=== PATIENT | female | born 1965 | race Caucasian/White ===

== ENCOUNTER → 2017-08-04 | Outpatient (CLI) | payer BC ==
[~2017-08-04] VITALS: Ht 162.6 cm; Wt 67.6 kg
[~2017-08-04] MED LIST: BACLOFEN20 MG PO; BENTYL 20 MG TA20 M1 PO; BUTALB-APAP-CA1 EACH PO; CLONAZEPAM 1 MG1 M1 PO; FOLIC ACID1 MG PO; HUMIRA40 MG/0.8 SQ; KLONOPIN0.5 MG PO; METHOTREXATE 22.5 MG SUBQ; NYSTATIN15 G3 TOP; OXYCODONE HCL 55 MG PO; PAXIL CR25 MG PO; PAXIL10 MG PO; PERCOCET 10-321 EACH PO; PHENERGAN 25 MG25 M1 PO; ROXICODONE5 MG PO; SYNTHROID50 MCG PO; TRAMADOL 50 MG50 MG PO; WELLBUTRIN SR150 M1 PO; ZOFRAN ODT4 MG PO
--- NOTE | ~2017-08-04 | HPC ---
[facility] [place] [address] PAIN MANAGEMENT CONSULTATION Name: CAMDEN FINK Room #: REG [facility]#: [id number] Admission: 08/04/17 Attend Phys: Dylon Benites DO Discharge: Date of : 61 Report #: [id number] THIS REPORT FOR: //name// CC: Drew Benites DATE OF SERVICE: 08/04/2017 REFERRING PHYSICIAN: Drew Abrams MD CHIEF COMPLAINT: Left hip pain. HISTORY OF PRESENT ILLNESS: As you know, the patient is a 52-year-old female who was originally seen by [facility] for neck pain and head pain. This was last year for which she is now complaining of very little pain in the area. She has been experiencing increasing left hip pain. It has been going on for about 5 months, describes the pain is aching, places current pain score 7/10, states the pain is exacerbated with sitting, getting up from chair. Medications, heat and cold compresses and rest appear to improve pain. She has been referred back to our clinic for evaluation for left hip pain without inciting injury or trauma. ALLERGIES: No reported drug allergies. CURRENT MEDICATIONS: Tramadol, paroxetine, levothyroxine, Bentyl, promethazine, folic acid, bupropion. SOCIAL HISTORY: The patient continues to smoke. Denies IV or illicit drug use. Denies any chronic alcohol use. She is unaccompanied today. IMAGING: No new imaging available. PHYSICAL EXAMINATION: VITAL SIGNS: Blood pressure 134/76, pulse 90, respiratory rate 14, unlabored. The patient is 100% on room air, height 5 feet 4 inches tall, weight 149 pounds, BMI calculated 25.6. GENERAL: Well-developed, well-nourished, well-hydrated 52-year-old female, appears stated age. She is placing current pain score at approximately 7/10. HEENT: Normocephalic and atraumatic. Pupils equal, round, reactive to light. Extraocular muscles are intact. Sclerae are nonicteric without injection. NEUROLOGIC: Cranial nerves 2 through 12 grossly intact. Speech is fluent. LUNGS: Clear, no wheeze, rhonchi or rales. CARDIOVASCULAR: Regular. No appreciable gallop or rub. ABDOMEN: Soft, nontender, nondistended. EXTREMITIES: Show no clubbing, no cyanosis, no edema. [address] [address] PAIN MANAGEMENT CONSULTATION Name: CAMDEN FINK Room #: REG [facility]#: [id number] Admission: 08/04/17 Attend Phys: Dylon Benites DO Discharge: Date of : 61 Report #: [id number] MUSCULOSKELETAL: The patient has some palpatory tenderness over the left hip when compared to the right. Gait is mildly antalgic favoring the left lower extremity over right. Pain is elicited with standing from a seated position. Mariza's test positive left, negative right. Muscle bulk and tone equal and symmetrical in lower extremities, intact to light touch from L1 through S2 dermatomes. ASSESSMENT: 1. Left hip pain. 2. Left hip osteoarthritis. 3. Intractable pain. PLAN: 1. The patient returns today in followup visit now complaining of left hip pain. This has been going on for about 5 months. The patient indicates pain is nearly nonexistent while sitting and lying down, but it intensifies with walking and standing. This does appear that the patient is having some intrinsic hip pathology. She comes to us today without any imaging studies to further evaluate the left hip. The findings and physical exam would indicate mild arthritic changes, possible labral injury. We discussed with the patient's treatment options we have available for her symptoms. These would include physical therapy, stretching exercise, core strengthening. We discussed medication management with addition of a nonsteroidal anti-inflammatory. We discussed intraarticular hip injections and possible surgical options. After reviewing risks and benefits of all proposed treatment options, the patient chose to undergo left intraarticular hip injection and medication management. The patient was advised risks and benefits of a left intraarticular hip injection. These risks include but are not necessarily limited to bleeding, bruising, infection, worsening pain, no relief of pain, also risk of temporary or permanent muscle weakness, temporary or permanent nerve damage, possible paralysis and . The patient states understood and wished to proceed. 2. The patient was provided a prescription for nystatin. She has some lesions across the abdomen that appear to be related to Candidal infection. She is given the nystatin to apply topically to these areas. She will initiate this therapy. If this is ineffective, contact her primary care for further evaluation. 3. The patient was provided a prescription of oxycodone 5 mg dose 1 tab p.o. t.i.d. p.r.n. pain, #90. This is to help the patient with analgesia as we await the efficacy of the left hip injection. 4. The patient will be sent for x-ray imaging of the left hip to further evaluate. We will have the patient undergo a left hip imaging today. We will contact the patient once this imaging has been completed. 5. We will see the patient back in followup visit on an as needed basis. PROCEDURE NOTE [address] [address] PAIN MANAGEMENT CONSULTATION Name: CAMDEN FINK Room #: REG [facility]#: [id number] Admission: 08/04/17 Attend Phys: Dylon Benites DO Discharge: Date of : 61 Report #: [id number] DESCRIPTION OF PROCEDURE: Left intra-articular hip injection under fluoroscopic guidance. After obtaining written consent, the patient was taken back to fluoroscopy suite, placed in a supine position. Image intensifier was then brought into position over the left hip and imaging was obtained. The area was prepped and draped in aseptic fashion using chlorhexidine. A sterile marker was then placed over the injection site. Once imaging was completed, 3 mL of lidocaine 1% was used to anesthetize skin and subcutaneous tissue utilizing a 27 gauge 1/4 inch needle. A 22-gauge 3-1/2 inch spinal needle was advanced under fluoroscopic guidance into the left hip. Needle was advanced until it reached the proximal head of the femur. Needle was then retracted approximately 1 mm and aspiration noted to be negative for heme. After aspiration noted negative for heme, 0.3 mL of Omnipaque was injected. An excellent left hip arthrogram was obtained. After negative aspiration for heme, 5 mL of a solution containing 1 mL 40 mg per mL, 40 mg total triamcinolone, 4 mL of bupivacaine 0.5% was injected slowly. Needle retracted usp, flushed with 1 mL of 1% lidocaine and removed. Sterile bandage placed over the injection site. No new motor deficits present in lower extremity following procedure. The patient tolerated the procedure well, carefully escorted to recovery room in stable condition. No apparent complications. After meeting discharge criteria, the patient was discharged home. <ELECTRONICALLY SIGNED> By: Dylon Benites DO 08/12/17 1219 [id number] [id number] Dylon Benites DO /nt
[2017-08-04 11:36] VITALS: BP 134/76
== END | disposition home or self-care (01) ==
LOC: PAIN 08-12 07:11
DX: M16.12 Unilateral primary osteoarthritis, left hip (principal); G89.29 Other chronic pain; F17.200 Nicotine dependence, unspecified, uncomplicated

== ENCOUNTER → 2018-03-02 | Outpatient (CLI) | payer BC ==
[~2018-03-02] VITALS: Ht 162.6 cm; Wt 70.6 kg
[~2018-03-02] MED LIST changes: +FISH OIL 1,001000 M2 PO; +FLONASE 0.05%50 MCG NASAL; +ORENCIA125 MG/1 M SUBQ; +WELLBUTRIN SR150 MG PO; +ZYRTEC10 M5 PO
--- NOTE | ~2018-03-02 | HPC ---
[facility] [address] [place] [address] PAIN MANAGEMENT CONSULTATION Name: CAMDEN FINK [id number] Admission: 03/02/18 Attend Phys: Dylon Benites DO Discharge: Date of : 61 Report #: [id number] THIS REPORT FOR: //name// CC: Drew Benites Physician staff DATE OF SERVICE: 03/02/2018 CHIEF COMPLAINT: Left hip pain. HISTORY OF PRESENT ILLNESS: As you know, the patient is a 52-year-old female followed by [facility] for various pain generators. We initially saw the patient for neck and head pain and after this resolved, she was continuing to experience left hip pain and she has undergone left intraarticular hip injections with good efficacy. Most recent injection was performed on 08/04/2017 with prolonged improvement. She states that she was in her normal state of health, doing very well from a hip standpoint when she sustained a slip and fall injury down the stairs while carrying laundry. She states that she has likely fractured her coccyx as this is the diagnosis she was given by her primary care physician. She did not seek evaluation through the Emergency Department after the fall, but has been experiencing continued buttock pain located directly over the coccyx itself. She indicates that during this fall, she exacerbated her typical hip pain. She returns today with hip pain of a level of anywhere from 5-6/10, requesting possible left intraarticular hip injection to improve symptoms. She denies any other injury or trauma that may have led to symptom development. She has had changes in her medications for rheumatoid arthritis, now on Orencia. ALLERGIES: No reported drug allergies. CURRENT MEDICATIONS: Fluticasone, dicyclomine, cetirizine, Orencia, omega 3 fish oil, Roxicodone, paroxetine, levothyroxine, bupropion. SOCIAL HISTORY: The patient reports she is continuing to smoke. Denies IV or illicit drug use. Denies any chronic alcohol use. She is unaccompanied today. IMAGING: There is no new imaging available. PHYSICAL EXAMINATION: VITAL SIGNS: Blood pressure 112/76, pulse 88, respiratory rate 14 and unlabored. The patient is 100% on room air. Height 5 feet 4 inches tall, weight 155.6 pounds, BMI calculated 26.7. GENERAL: Well-developed, well-nourished, well-hydrated 52-[place] [address] PAIN MANAGEMENT CONSULTATION Name: CAMDEN FINK Room #: REG [facility]#: [id number] Admission: 03/02/18 Attend Phys: Dylon Benites DO Discharge: Date of : 61 Report #: [id number] appearing her stated age, placing current pain score 5-6/10. HEENT: Normocephalic, atraumatic. Pupils equal, round, reactive to light. Extraocular muscles are intact. Speech is fluent. LUNGS: Clear, no wheeze, rhonchi or rales. CARDIOVASCULAR: Regular. No appreciable gallop, no rub. ABDOMEN: Soft, mildly obese, normoactive bowel sounds. EXTREMITIES: Show no clubbing, no cyanosis, no edema. MUSCULOSKELETAL: There is palpatory tenderness over the sacrococcygeal area. No ecchymosis, no changes in skin color or texture. There is increased pain with deep palpation. Larisa's test is positive left, negative right. Gait is mildly antalgic favoring left lower extremity over right. Seated straight leg raising negative. Supine straight leg raising negative. Modified Gaenslen's positive only for coccygeal pain with extension. ASSESSMENT: 1. Coccydynia. 2. Left hip pain. 3. Left hip osteoarthritis. 4. Chronic intractable pain. PLAN: 1. The patient has returned today in followup visit reporting a recent slip and fall injury where she was carrying laundry down the stairs, missed a stair, slipped and fell on her buttock area. It does appear the patient is suffering from fairly intense coccydynia. There is a strong possibility she has displaced the coccyx during the fall. As you are aware, treatment for coccyx fractures are typically conservative in nature. We would recommend the patient use hemorrhoid donut or padding of some type to decrease the weight when sitting. While standing, the patient does fairly well. Her difficulty is mainly sitting and leaning on the area, padding this area would improve the symptoms. Certainly, we could take a look at this with x-ray imaging though surgical options I do not feel are necessary. Conservative option would be most appropriate. The patient currently takes anti-inflammatories as well as pain medication she can utilize those as necessary. 2. The patient did exacerbate her left hip pain with this recent fall, hip pain appears to be typical in her case, does not appear that there is a significant increase in distribution or intensity. The symptoms that she is experiencing today appear to be similar to what we had seen in July. She has requested an intraarticular hip injection be provided today. I have advised her of the risks and benefits. She states understood and wished to proceed. 3. The patient was provided a refill prescription on her oxycodone 5 mg dose 1 tab p.o. t.i.d. I have given the patient #90 tablets. Last prescription of this medication was in July and she has been utilizing it appropriately. She was advised to continue to use it on a p.r.n. basis, not to rely on the medication prophylactically. 4. We will see the patient back in followup visit on an as needed basis. I am [facility] [place] [address] PAIN MANAGEMENT CONSULTATION Name: ALEKSCAMDEN M Room #: REG [facility]#: [id number] Admission: 03/02/18 Attend Phys: Dylon Benites DO Discharge: Date of : 61 Report #: [id number] hopeful today's injection in the left hip will provide good and prolonged benefit as we have seen in the past. PROCEDURE NOTE: DESCRIPTION OF PROCEDURE: Left intraarticular hip injection under fluoroscopic guidance. After obtaining written consent, the patient was taken back to fluoroscopy suite, placed in supine position. The fluoroscope was then brought into position over the left hip and imaging was obtained. The area was prepped and draped in aseptic fashion using chlorhexidine. A sterile marker was placed over the injection site. A 27-gauge 1-1/4 inch needle was then used to anesthetize skin and subcutaneous tissue with 3 mL of 1% lidocaine. A 22-gauge 3-1/2 inch spinal needle was advanced under fluoroscopic guidance into the left hip itself. Needle was advanced until reaching the proximal head of the femur. Needle was then retracted approximately 1 mm, aspiration noted to be negative for heme. After aspiration noted negative for heme, 0.5 mL of Omnipaque was injected. Left hip arthrogram was obtained. After negative aspiration for heme, 4 mL of a solution containing 1 mL 40 mg per mL, 40 mg total triamcinolone and 3 mL bupivacaine 0.5% injected slowly. Needle retracted mcfp, flushed with 1 mL of 1% lidocaine and removed. Sterile bandage placed over injection site. There were no new motor deficits present in lower extremity following procedure. The patient tolerated procedure well, was carefully escorted to recovery room in stable condition. No apparent complication. After meeting discharge criteria, the patient discharged home. <ELECTRONICALLY SIGNED> By: Dylon Benites DO 03/03/18 0853 [id number] [id number] Dylon Benites DO /nt
[2018-03-02 09:52] VITALS: BP 112/76
[2018-03-02 09:55] VITALS: BP 112/76
== END | disposition home or self-care (01) ==
LOC: PAIN 07:36
DX: M16.12 Unilateral primary osteoarthritis, left hip (principal); G89.29 Other chronic pain; M53.3 Sacrococcygeal disorders, not elsewhere classified; F17.210 Nicotine dependence, cigarettes, uncomplicated; Z88.8 Allergy status to other drugs, medicaments and biological substances; Z79.899 Other long term (current) drug therapy; Z98.890 Other specified postprocedural states